=== PATIENT | male | born 1980 | race Two or more races ===

== ENCOUNTER 2019-01-18 10:56 | Emergency (ER) | payer MEDICAID ==
[~2019-01-18] VITALS: Ht 170.2 cm; Wt 81.6 kg
[~2019-01-18 10:56] MED LIST: ANTIVERT25 MG ORAL; CYCLOBENZAPRINE10 MG ORAL; IBUPROFEN600 MG ORAL; NKM; NORCO 5-325 TA1 EACH ORAL; ULTRAM50 MG ORAL
[2019-01-18] MEDS ORDERED: Lidocaine 2% Visc 15ml soln ORAL ONE (12:00)
[2019-01-18] MEDS ORDERED: Dicyclomine HCl 10mg/5ml oral soln ORAL ONE (12:00)
--- NOTE | 2019-01-18 12:27 | NUR ---
ED Nurse Note:pt. received po meds and was taken to CT scan
[2019-01-18 12:31] VITALS: BP 145/89
--- NOTE | 2019-01-18 12:33 | NUR ---
ED Nurse Note:pt. is back from CT
[2019-01-18] MEDS ORDERED: PRILOSEC OTC20 MG ORAL (12:49)
[2019-01-18] MEDS ORDERED: DICYCLOMINE HCL10 MG PO (12:49)
--- NOTE | 2019-01-18 13:20 | Diagnostic Imaging Report ---
Indication: Abdominal pain Technique: Continuous helical transaxial imaging of the abdomen and pelvis was obtained from the lung bases to the pubic symphysis. No intravenous contrast was administered. Coronal 2-D reformats were also obtained. Automatic Exposure Control was utilized. Total Dose length Product (DLP): 962.[address] Dose Index Volume (CTDIvol): 17.49 mGy Comparison: 06/24/2013 Findings: The appendix is identified and appears normal. There is no evidence of inflammatory changes in the right lower quadrant. Small hiatal hernia is present. The lung bases are clear. Gallbladder is unremarkable. Tiny hypodensity in the liver is too small to characterize. There is no nephrolithiasis or hydronephrosis appreciated. Small umbilical hernia containing fat noted. There is no free fluid. There is no free air. Urinary bladder is nondistended. IMPRESSION: No acute findings appreciated. Normal appendix. Small umbilical hernia containing fat The CT scanner at [facility] is accredited by the [employer] and the scans are performed using dose optimization techniques as appropriate to a performed exam including Automatic Exposure control.
[2019-01-18 14:16] VITALS: BP 145/89
--- NOTE | 2019-01-18 14:22 | NUR ---
ER DISCHARGE NOTE: Patient is cleared to be discharged per ERMD, pt is aox4, on room air, with stable vital signs. pt was given dc and prescription instructions, pt was able to verbalize understanding, pt is able to ambulate with steady gait. pt took all belongings.
--- NOTE | 2019-01-18 16:19 | Emergency Room Report ---
History of Present Illness General Chief Complaint: Abdominal Pain Source: Patient Present Illness HPI Patient is a 38-year-old male presented after increased generalized abdominal pain and low back pain for the past 3 days. Patient had gradual onset of symptoms. He reports increased abdominal distention. He denies any recent trauma. He denies any prior history of diabetes or ulcers. He had not had any improvement with paer-qqz-[id number] medications. He denies any vomiting or diarrhea. Allergies: Coded Allergies: NO KNOWN ALLERGIES (Unverified Allergy, Unknown, 09/29/15) Patient History Reviewed Nursing Documentation: PMH: Agreed; PSxH: Agreed Nursing Documentation-PM Past Medical History: No Stated History Physical Exam Vital Signs Date Time Temp Pulse Resp B/P (MAP) Pulse Ox O2 Delivery O2 Flow Rate FiO2 01/18/19 11:03 98.2 55 16 95 Room Air 01/18/19 12:31 145/89 General Appearance: no apparent distress, alert, obese ENT: normal ENT inspection Neck: supple Respiratory: lungs clear, normal breath sounds Cardiovascular #1: regular rate, rhythm, no edema Gastrointestinal: normal inspection, normal bowel sounds, non tender, soft Musculoskeletal: normal inspection Neurologic: normal inspection, alert, oriented x3 Skin: normal inspection Medical Decision Making Diagnostic Impression: Primary Impression: Nonspecific abdominal pain Additional Impression: Low back pain ER Course Patient presented for abdominal pain. Differential diagnoses included ischemic bowel, appendicitis, perforated viscus, abdominal aortic aneurysm, inferior myocardial infarction, viral gastroenteritis among others. Because of complexity of patient's case imaging studies were ordered. CT imaging of the abdomen pelvis read by radiology showed a fat-containing umbilical hernia without evident obstruction. Patient was given a GI cocktail with improvement. Patient was advised to follow-up with his primary care physician for recheck. He is advised to return if he had any worsening of condition or other concerns. Last Vital Signs Date Time Temp Pulse Resp B/P (MAP) Pulse Ox O2 Delivery O2 Flow Rate FiO2 01/18/19 14:16 98.2 57 16 145/89 95 Room Air Status: improved Disposition: HOME, SELF-CARE Condition: Stable Scripts Omeprazole Magnesium (PRILOSEC OTC) 20 Mg Tablet. 20 MG ORAL DAILY, #30 TAB Prov: Rainer Marsh MD 01/18/19 Dicyclomine Hcl* (DICYCLOMINE HCL*) 10 Mg Capsule 10 MG PO QID, #30 CAP Prov: Rainer Marsh MD 01/18/19 Patient Instructions: Abdominal Pain, Adult Rainer Marsh MD January 18, 2019 16:19
== END 2019-01-18 14:22 | disposition home or self-care (01) ==
LOC: EMR 11:39
DX: R10.84 Generalized abdominal pain (principal); M54.5 Low back pain
CPT/HCPCS: 74176; 99284

== ENCOUNTER 2019-04-25 14:23 | Emergency (ER) | payer MEDICAID ==
[~2019-04-25] VITALS: Ht 172.7 cm; Wt 86.2 kg
[~2019-04-25 14:23] MED LIST changes: +DICYCLOMINE HCL10 MG PO; +PRILOSEC OTC20 MG ORAL
[2019-04-25 14:44] VITALS: BP 154/97
[2019-04-25] MEDS ORDERED: Tetanus/Diptheria/Pertussis IM ONE (15:30)
[2019-04-25] MEDS ORDERED: Ketorolac 30mg Inj IM ONE (16:15)
--- NOTE | 2019-04-25 16:17 | Emergency Room Report ---
History of Present Illness General Chief Complaint: Puncture Wound Source: Patient Present Illness HPI 38-year-old male presents to the emergency department complaining of 10 out of 10 in severity acute onset localized pain, tenderness and puncture wound to the left posterior calf x1 day. Patient reports that he was inside the bed of his truck when he had a slip and fall and landed on a piece of wood which caused him to sustain a puncture injury. Patient reports he pulled out a small piece of wood he reports he continues to have pain exacerbated upon palpation of the posterior calf and with walking. Patient states he is able to bear weight he denies bony tenderness or pain. Patient reports some swelling he states he is not sure when his last tetanus vaccination was. Patient denies taking blood thinning medications. No other aggravating or relieving factors at this time. Patient states he has not tried any xtsm-vtl-azwehye pain medications in an attempt to relieve his symptoms. Denies numbness tingling or loss of sensation or gross motor movements of the extremities, incontinence of bowel or bladder. Denies CP, Palpitations, LOC, AMS, dizziness, Changes in Vision, weakness or a sudden severe headache. Allergies: Coded Allergies: NO KNOWN ALLERGIES (Unverified Allergy, Unknown, 09/29/15) Patient History Past Medical History: see triage record Past Surgical History: none Pertinent Family History: none Reviewed Nursing Documentation: PMH: Agreed; PSxH: Agreed Nursing Documentation-PM Past Medical History: No Stated History Review of Systems All Other Systems: negative except mentioned in HPI Physical Exam Vital Signs Date Time Temp Pulse Resp B/P (MAP) Pulse Ox O2 Delivery O2 Flow Rate FiO2 04/25/19 14:44 98.6 92 16 154/97 99 Room Air Sp02 EP Interpretation: reviewed, normal General Appearance: no apparent distress, alert, GCS 15, non-toxic Head: normocephalic, atraumatic Eyes: bilateral eye normal inspection, bilateral eye PERRL ENT: hearing grossly normal, normal voice Neck: full range of motion Respiratory: lungs clear, normal breath sounds, speaking full sentences Cardiovascular #1: regular rate, rhythm, normal capillary refill Cardiovascular #2: 2+ dorsalis pedis (R), 2+ dorsalis pedis (L) Musculoskeletal: back normal, gait/station normal - compensatory favoring the left leg., normal range of motion, tender - TTP to the Soft tissues of the posterior left calf. no bony ttp. Neurologic: alert, oriented x3, responsive, motor strength/tone normal, sensory intact, speech normal, grossly normal Psychiatric: judgement/insight normal Skin: other - Puncture wound of Left Posterior Calf- small less than 0.5cm in diameter, no evidence of foreign body or infection at this time. Medical Decision Making PA Attestation Dr. Snyder is my supervising physician whom pt. management has been discussed with. Diagnostic Impression: Primary Impression: Puncture wound ER Course 38-year-old male presents to the emergency department complaining of 10 out of 10 in severity acute onset localized pain, tenderness and puncture wound to the left posterior calf x1 day. Patient reports that he was inside the bed of his truck when he had a slip and fall and landed on a piece of wood which caused him to sustain a puncture injury. Patient reports he pulled out a small piece of wood he reports he continues to have pain exacerbated upon palpation of the posterior calf and with walking. Patient states he is able to bear weight he denies bony tenderness or pain. Patient reports some swelling he states he is not sure when his last tetanus vaccination was. Patient denies taking blood thinning medications. No other aggravating or relieving factors at this time. Patient states he has not tried any yzno-yyd-yzwjxen pain medications in an attempt to relieve his symptoms. Denies numbness tingling or loss of sensation or gross motor movements of the extremities, incontinence of bowel or bladder. Denies CP, Palpitations, LOC, AMS, dizziness, Changes in Vision, weakness or a sudden severe headache. Ddx considered but are not limited to foreign body, tendon injury, cellulitis, circulatory compromise just to name a few. Vital signs: are WNL, pt. is afebrile H&PE are most consistent with: Puncture wound of Left Posterior Calf- small less than 0.5cm in diameter, no evidence of foreign body or infection at this time. ORDERS: X-ray imaging of the left Tib/Fib to R/o Radiopaque Fb. --WNL ED INTERVENTIONS: --Toradol 30mg IM -Tetanus vaccine was administered as pt. vaccination status was unknown. - The wound was copiously irrigated with normal saline, and explored for foreign body for which no FB was found. -Discussed with patient that we do not close puncture wounds as that would increase his risk of infection. - Discussed with patient that we will be treating him with oral antibiotics. - Topical Neosporin and wound dressing applied by RN. -I do not identify an emergent condition at this time. With current presentation , pt. is stable for close outpatient follow up and conservative treatment. D/ w pt. to return promptly to ED with worsening or new symptoms.- Pt. verbalizes' understanding and agreement with proposed treatment plan.proposed treatment plan. DISCHARGE: At this time pt. is stable for d/c to home. Will provide printed patient care instructions, and any necessary prescriptions. Care plan and follow up instructions have been discussed with the patient prior to discharge. Other X-Ray Diagnostic Results Other X-Ray Diagnostic Results : X-Ray ordered: Left Tib/Fib # of Views/Limited Vs Complete: 2 View Indication: Pain EP Interpretation: Yes PA Xray: Interpretation reviewed, by supervising MD, and agrees with findings. Interpretation: no dislocation, no soft tissue swelling, no fractures, other - NO radiopaque retained Fb's Impression: No acute disease Electronically Signed by: Carlie Omalley PA-C Last Vital Signs Date Time Temp Pulse Resp B/P (MAP) Pulse Ox O2 Delivery O2 Flow Rate FiO2 04/25/19 14:44 98.6 92 16 154/97 (116) 99 Room Air Status: improved Disposition: HOME, SELF-CARE Condition: Stable Scripts Ibuprofen* (MOTRIN*) 600 Mg Tablet 600 MG ORAL THREE TIMES A DAY, #30 TAB 0 Refills Prov: Carlie Omalley 04/25/19 Bacitracin/Polymyxin B Sulfate (BACITRACIN-POLYMYXIN OINTMENT) 28.35 Gm Oint...g. 1 APPLIC TP BID, #28.3 GM Prov: Carlie Omalley 04/25/19 Cephalexin* (KEFLEX*) 500 Mg Capsule 500 MG ORAL EVERY 12 HOURS for 7 Days, #14 CAP 0 Refills Prov: Carlie Omalley 04/25/19 Patient Instructions: Puncture Wound Additional Instructions: Take medications as directed. Follow up with a Primary Care Provider in 3-5 days, even if your symptoms have resolved. --Please review list of primary care clinics, if you do not already have a primary care provider Return sooner to ED if new symptoms occur, or current symptoms become worse. - Please note that this Emergency Department Report was dictated using [employer] Bio[employer]arm[employer]pper setter chainstitch technology software, occasionally this can lead to erroneous entry secondary to interpretation by the dictation equipment. Carlie Omalley Apr 25, 2019 16:17
[2019-04-25] MEDS ORDERED: Neosporin Oint Ud Pkt TOPIC ONE (16:45)
[2019-04-25] MEDS ORDERED: BACITRACIN-P28.35 GM TP (16:50)
[2019-04-25] MEDS ORDERED: IBUPROFEN600 MG ORAL (16:50)
[2019-04-25] MEDS ORDERED: CEPHALEXIN500 MG ORAL (16:50)
--- NOTE | 2019-04-25 17:00 | NUR ---
ED Nurse Note: Cleansed left calf wound with NS, patted dry then applied neosporin ointment, covered with non stick dressing and wrapped with kerlix/secured with tape.
[2019-04-25 17:04] VITALS: BP 145/90
--- NOTE | 2019-04-25 17:04 | NUR ---
ER DISCHARGE NOTE: Pt was seen due to left lower calf puncture wound. Patient is cleared to be discharged per PA, pt is aox4, on room air, with stable vital signs. pt was given dc and prescription instructions, pt was able to verbalize understanding, pt id band removed without complications. pt is able to ambulate with steady gait. pt took all belongings.
--- NOTE | 2019-04-27 08:14 | Diagnostic Imaging Report ---
Indication: Pain Technique: Multiple views of the left tibia and fibula Comparison: None Findings: No acute fracture or dislocation. Asymmetrical cortical thickening of the medial tibia may related to old trauma. Knee and ankle joints appear maintained. No acute soft tissue abnormality. Impression: No acute fracture or dislocation.
== END 2019-04-25 17:04 | disposition home or self-care (01) ==
LOC: EMR 16:49
DX: S81.832A Puncture wound without foreign body, left lower leg, initial encounter (principal); W01.198A Fall on same level from slipping, tripping and stumbling with subsequent striking against other object, initial encounter; Z23 Encounter for immunization
CPT/HCPCS: 73590; 90471; 90715; 96372; 99283; J1885

== ENCOUNTER 2019-11-27 08:43 | Emergency (ER) | payer MEDICAID ==
[~2019-11-27] VITALS: Ht 165.1 cm; Wt 86.2 kg
[~2019-11-27 08:43] MED LIST changes: +BACITRACIN-P28.35 GM TP; +CEPHALEXIN500 MG ORAL
--- NOTE | 2019-11-27 08:50 | NUR ---
ED Nurse Note: Pt ambulated to ED d/t LT lower back pain x 1 day. Pt is AOx4, skin is intact pt denies any trauma/injury. Awating for ERMD.
[2019-11-27 08:55] VITALS: BP 131/91
[2019-11-27] MEDS ORDERED: LIDODERM700 M1 TOPIC (08:57)
[2019-11-27] MEDS ORDERED: ROBAXIN-750750 MG PO (08:57)
[2019-11-27] MEDS ORDERED: IBUPROFEN600 MG ORAL (08:57)
[2019-11-27] MEDS ORDERED: TYLENOL325 MG ORAL (08:57)
--- NOTE | 2019-11-27 08:57 | Emergency Room Report ---
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 presents with left lower back pain started yesterday no inciting factor, patient endorses pain with movement bending, leaving factors is lying down resting, severity is mild, intermittent no fevers no chills no midline tenderness, no perineal numbness, no bladder retention/ incontinence no history of IV drug use Allergies: Coded Allergies: NO KNOWN ALLERGIES (Unverified Allergy, Unknown, 09/29/15) Patient History Past Medical History: see triage record Reviewed Nursing Documentation: PMH: Agreed; PSxH: Agreed Nursing Documentation-PMH Past Medical History: No Stated History Review of Systems All Other Systems: negative except mentioned in HPI Physical Exam Vital Signs Date Time Temp Pulse Resp B/P (MAP) Pulse Ox O2 Delivery O2 Flow Rate FiO2 11/27/19 08:46 97.5 77 17 131/91 (104) 99 Room Air General Appearance: well appearing, no apparent distress Head: normocephalic, atraumatic ENT: hearing grossly normal, normal voice Neck: full range of motion, supple Respiratory: no respiratory distress, speaking full sentences Musculoskeletal: other - Back: No midline tenderness tenderness to palpation left lower back in the muscle Neurologic: alert, normal gait Psychiatric: mood/affect normal Skin: no rash Medical Decision Making Diagnostic Impression: Primary Impression: Low back pain Qualified Codes: M54.5 - Low back pain ER Course The patient presents with acute onset of back pain. Clinically this patient can be ruled out for serious pathology given there is a completely normal neurological exam, no history of IV drug use, and no history of bowel or bladder incontinence, no perianal numbness/tingling, no constipation or urinary retention. Once the patient's pain was adequately controlled, the patient was able to ambulate and be discharged in stable condition with anticipatory guidance provided. Last Vital Signs Date Time Temp Pulse Resp B/P (MAP) Pulse Ox O2 Delivery O2 Flow Rate FiO2 11/27/19 08:46 97.5 77 17 131/91 (104) 99 Room Air Disposition: HOME, SELF-CARE Condition: Stable Scripts Methocarbamol* (ROBAXIN-750*) 750 Mg Tablet 750 MG PO QID, #28 TAB 0 Refills Prov: Luis Mccrary MD 11/27/19 Acetaminophen (Tylenol) 325 Mg Tablet 650 MG ORAL Q6H PRN for Prn Pain/Headache/Temp > 101, #30 TAB 0 Refills Prov: Luis Mccrary MD 11/27/19 Ibuprofen* (MOTRIN*) 600 Mg Tablet 600 MG ORAL Q8H PRN for For Pain, #30 TAB 0 Refills Prov: Luis Mccrary MD 11/27/19 Lidocaine Patch* (Lidoderm Patch*) 1 Each Adh..patch 1 PATCH TOPIC DAILY, #7 PATCH 0 Refills Patch(es) may remain in place for up to 12 hours in any 24-hour period. Prov: Luis Mccrary MD 11/27/19 Referrals: NOT CHOSEN IPA/,REFERRING (PCP) [facility] Zarago[facility]. [facility] Patient Instructions: Low Back Sprain With Rehab-SportsMed Additional Instructions: The patient was provided with discharge instructions, notified to follow-up with a primary care doctor and or specialist in the next 24-48 hours, and to return to the ED if they have worsening of their symptoms. Please note that this report is being documented using [employer] technology. This can lead to erroneous entry secondary to incorrect interpretation by the dictating instrument. Luis Mccrary MD Nov 27, 2019 08:57
[2019-11-27] MEDS ORDERED: Ketorolac 30mg Inj IM ONE (09:00)
[2019-11-27] MEDS ORDERED: Acetaminophen 500mg (ES) tab ORAL ONE (09:00)
[2019-11-27] MEDS ORDERED: Methocarbamol 750mg tab ORAL ONE (09:00)
[2019-11-27 09:04] VITALS: BP 131/91
--- NOTE | 2019-11-27 09:04 | NUR ---
ER DISCHARGE NOTE: Patient is cleared to be discharged per ERMD, pt is aox4, on room air, with stable vital signs. pt was given dc and prescription instructions, pt was able to verbalize understanding, pt id band removed. pt is able to ambulate with steady gait. pt took all belongings.
== END 2019-11-27 09:04 | disposition home or self-care (01) ==
LOC: EMR 08:52
DX: M54.5 Low back pain (principal)
CPT/HCPCS: 96372; J1885; Z7502; 99283

== ENCOUNTER 2020-05-14 11:34 | Emergency (ER) | payer MEDICAID ==
[~2020-05-14] VITALS: Ht 165.1 cm; Wt 86.2 kg
[~2020-05-14 11:34] MED LIST changes: +LIDODERM700 M1 TOPIC; +ROBAXIN-750750 MG PO; +TYLENOL325 MG ORAL
[2020-05-14] MEDS ORDERED: Cephalexin 500mg cap ORAL ONE (12:30)
[2020-05-14] MEDS ORDERED: Bactrim-DS 1 tab ORAL ONE (12:30)
[2020-05-14] MEDS ORDERED: NORCO 5-325 TA1 EAC1 ORAL (12:52)
[2020-05-14] MEDS ORDERED: CEPHALEXIN500 MG ORAL (12:52)
[2020-05-14] MEDS ORDERED: BACTRIM DS TAB1 EAC1 ORAL (12:52)
--- NOTE | 2020-05-14 12:58 | Emergency Room Report ---
History of Present Illness General Chief Complaint: Pain Source: Patient Present Illness HPI Patient is a 39-year-old male presents after increased buttock pain. Gradual onset of symptoms. Began 4 days ago. Had previous been healthy. Denies any difficulty with urination or change in stool habits. Had not been vomiting or having any fever. Worsening pain progressing. Had noticed a cystic area to the buttock. Allergies: Coded Allergies: NO KNOWN ALLERGIES (Unverified Allergy, Unknown, 09/29/15) COVID-19 Screening Contact w/high risk pt: No Experienced COVID-19 symptoms?: No COVID-19 Testing performed DIRECTOR CAREER: No Patient History Past Medical History: see triage record Reviewed Nursing Documentation: PMH: Agreed; PSxH: Agreed Nursing Documentation-PMH Past Medical History: No Stated History Review of Systems All Other Systems: negative except mentioned in HPI Physical Exam Vital Signs Date Time Temp Pulse Resp B/P (MAP) Pulse Ox O2 Delivery O2 Flow Rate FiO2 05/14/20 11:42 98.2 108 17 162/92 (115) 98 Room Air Sp02 EP Interpretation: reviewed, normal General Appearance: normal inspection, well appearing, no apparent distress, alert, GCS 15 Head: atraumatic ENT: normal ENT inspection, hearing grossly normal, normal voice Neck: normal inspection, full range of motion, supple, no bony tend Respiratory: normal inspection, lungs clear, normal breath sounds, no respiratory distress, no retraction, no wheezing Cardiovascular #1: regular rate, rhythm, no edema Gastrointestinal: normal inspection, normal bowel sounds, non tender, soft, no guarding, no hernia Genitourinary: no CVA tenderness Musculoskeletal: normal inspection, back normal, normal range of motion Neurologic: alert, motor strength/tone normal, industrial ecologist III-XII nml as tested, oriented x3, responsive, speech normal, normal inspection Psychiatric: normal inspection, judgement/insight normal, mood/affect normal Skin: other - Some tenderness to the buttock without evidence of fluctuance or significant erythema, no perineal induration or hemorrhoid Medical Decision Making Diagnostic Impression: Primary Impression: Cellulitis of buttock, right ER Course Patient presented for buttock pain. Differential diagnosis include was not limited to abscess, cellulitis, diabetes, Dorothy's gangrene among others. Patient has a benign exam and does not appear to require any imaging or laboratory testing at this time. Patient appears to have an early infection to the buttock.Does not appear to have any evidence of drainable abscess at this time. Patient was given prescriptions for oral antibiotics. Patient will be discharged home. He was advised to have the area rechecked in 1 to 2 days and that he may require a drainage procedure after reevaluation.The patient is advised to follow up with primary care doctor in 1-2 days. Patient is advised to return if any worsening condition or if any changes in status that are concerning. This report is dictated with [employer] treasury management sales consultant software which may occasionally lead to discrepancies related to use of this software. Labs Test 05/14/20 12:22 POC Whole Blood Glucose 117 MG/DL (74-106) Last Vital Signs Date Time Temp Pulse Resp B/P (MAP) Pulse Ox O2 Delivery O2 Flow Rate FiO2 05/14/20 11:42 98.2 108 17 162/92 (115) 98 Room Air Status: improved Disposition: HOME, SELF-CARE Condition: Stable Scripts Hydrocodone Bit/Acetaminophen 5-325* (NORCO 5-325 TABLET*) 1 Each Tablet 1 TAB ORAL Q6H PRN for FOR PAIN, #10 TAB 0 Refills Prov: Rainer Marsh MD 05/14/20 Trimethoprim/Sulfamethoxazole 160/800* (BACTRIM DS TABLET*) 1 Each Tablet 1 TAB ORAL Q12H, #14 TAB 0 Refills Prov: Rainer Marsh MD 05/14/20 Cephalexin* (KEFLEX*) 500 Mg Capsule 500 MG ORAL EVERY 6 HOURS, #28 CAP Prov: Rainer Marsh MD 05/14/20 Patient Instructions: Cellulitis Additional Instructions: Follow up for recheck in 1-2 days with your doctor. Return if worse. You may require a drainage procedure for the infection if worse. Rainer Marsh MD May 14, 2020 12:58
[2020-05-14 13:00] VITALS: BP 155/88
== END 2020-05-14 13:03 | disposition home or self-care (01) ==
LOC: EMR 12:10
DX: R52 Pain, unspecified (principal); L03.317 Cellulitis of buttock
CPT/HCPCS: 82962; Z7502; 99282